=== PATIENT | female | born 1950 | race Caucasian/White ===

== ENCOUNTER → 2016-11-10 | Outpatient (CLI) | payer MEDICARE, BC ==
[~2016-11-10] MED LIST: DIOVAN; TYLENOL #3 PO; VALSARTAN-HCTZ1 EACH PO
--- NOTE | ~2016-11-10 | CR184 ---
[facility] A Service of [facility] & [facility] RADIOLOGY TEXT RESULTS PATIENT: OZZIE BANKS LOCATION: [facility] : 48 UNIT #: [id number] AGE: [address]: Michelle Marks MD SEX: F ORDER DR: [id number] [facility] [address] [place], [place] [address] [id number] O MR#: [id number] Acc #: [id number] NAME: OZZIE BANKS : 1950 SEX: F STUDY DATE/TIME: 11/10/2016 11:50 UNIT: [facility] ROOM: STUDY DESCRIPTION: CR Lumbar Spine Min 4 Views Attending Physician: Michelle Marks M.D. Ordering Physician: Michelle Marks M.D. Primary Care Physician: Michelle Marks M.D. MEDICAL IMAGING REPORT This report is preliminary unless electronic signature is present EXAM Lumbar spine series in 5 views, including bilateral obliques, 11/10/2016. HISTORY Back pain for 3 months radiating to left hip. FINDINGS There is a mild dextroscoliosis. There is facet degenerative change, primarily at L4-L5 and L5-S1, and to a lesser degree, at other levels. Intervertebral discs are generally preserved. There is no fracture or bone destruction. IMPRESSION Degenerative changes including slight dextroscoliosis; no convincing acute abnormality. Dictated by... Octavio Cornelius M.D. THIS IS AN ELECTRONICALLY VERIFIED REPORT Octavio Cornelius M.D. at 11/14/2016 5:05 PM TEV/iris TD: 11/10/2016 18:01 JOB #: [id number] MEDICAL IMAGING REPORT Page 1 of 1 COPY
--- NOTE | ~2016-11-10 | CR144 ---
[facility] A Service of [facility] & [facility] RADIOLOGY TEXT RESULTS PATIENT: OZZIE BANKS LOCATION: [facility] : 48 UNIT #: [id number] AGE: [address]: Michelle Marks MD SEX: F ORDER DR: [id number] [facility] [address] [place], [place] [address] [id number] O MR#: [id number] Acc #: [id number] NAME: OZZIE BANKS : 1950 SEX: F STUDY DATE/TIME: 11/10/2016 11:49 UNIT: [facility] ROOM: STUDY DESCRIPTION: CR Hip 1 View Lt Attending Physician: Michelle Marks M.D. Ordering Physician: Michelle Marks M.D. Primary Care Physician: Michelle Marks M.D. MEDICAL IMAGING REPORT This report is preliminary unless electronic signature is present EXAM Left hip 2 views, 11/10/2016 HISTORY Hip pain x3 months. No injury. FINDINGS AP and oblique examination of the hip shows adequate mineralization of the bones and a normal anatomic relationship of the femoral head with the acetabulum. There are no hypertrophic changes, fractures, dislocation, or joint capsular distension. No radiopaque foreign body is present about the soft tissues of the hip. IMPRESSION Normal hip. Dictated by... Saul Mcmahon M.D. THIS IS AN ELECTRONICALLY VERIFIED REPORT Saul Mcmahon M.D. at 11/10/2016 11:39 PM LEONARD/trisha TD: 11/10/2016 23:02 JOB #: [id number] MEDICAL IMAGING REPORT Page 1 of 1 COPY
== END | disposition home or self-care (01) ==
LOC: CRAD 11:00
DX: M70.62 Trochanteric bursitis, left hip (principal); M54.16 Radiculopathy, lumbar region; M25.552 Pain in left hip; M47.816 Spondylosis without myelopathy or radiculopathy, lumbar region; M41.86 Other forms of scoliosis, lumbar region
CPT/HCPCS: 72110; 73501